=== PATIENT | male | born 1965 | race African-American/Black ===

== ENCOUNTER 2021-12-24 19:38 | Emergency (ER) | payer MEDICARE, MEDICAID ==
[~2021-12-24] VITALS: Ht 175.3 cm; Wt 91.0 kg
[~2021-12-24 19:38] MED LIST: CARI350T28; IBUP-779; NEBI10TA2; SEE MED SHEET
[2021-12-24 19:58] VITALS: BP 145/97
[2021-12-24] MEDS ORDERED: BUTE12CR2 TP (22:41)
[2021-12-24] MEDS ORDERED: CLOTRIMAZOLE 1% SOLUTION 10ML TOP ONE (22:45)
[2021-12-24] MEDS ORDERED: CLOTRIMAZOLE 1% CREAM 15GM TOP ONE (23:00)
== END 2021-12-24 23:08 | disposition home or self-care (01) ==
LOC: ER 19:38
DX: B35.3 Tinea pedis (principal); Z98.890 Other specified postprocedural states; Z79.899 Other long term (current) drug therapy
CPT/HCPCS: 73630; 99283